=== PATIENT | male | born 1935 | race Caucasian/White ===

== ENCOUNTER 2024-03-15 15:47 | Emergency (ER) | payer MEDICARE, OTHER | END 2024-03-15 17:37 | disposition home or self-care (01) | LOC: CC.ED 15:47 | DX: S80.02XA Contusion of left knee, initial encounter (principal); E78.00 Pure hypercholesterolemia, unspecified; I10 Essential (primary) hypertension; E11.9 Type 2 diabetes mellitus without complications; Z95.5 Presence of coronary angioplasty implant and graft; Z79.82 Long term (current) use of aspirin; Z79.84 Long term (current) use of oral hypoglycemic drugs; Z79.899 Other long term (current) drug therapy; W27.8XXA Contact with other nonpowered hand tool, initial encounter | CPT/HCPCS: 73562-LT; 99283 ==